=== PATIENT | female | born 1995 ===

== ENCOUNTER 2022-02-17 10:56 | Outpatient (CLI) | payer OTHER | END 2022-02-17 12:25 | disposition home or self-care (01) | LOC: PRENATAL 10:56 | PROVIDERS: ATTEND Obstetrics & Gynecology Maternal & Fetal Medicine | DX: O35.0XX0 Maternal care for (suspected) central nervous system malformation in fetus, not applicable or unspecified (principal); Z3A.20 20 weeks gestation of pregnancy; O35.3XX0 Maternal care for (suspected) damage to fetus from viral disease in mother, not applicable or unspecified; O34.219 Maternal care for unspecified type scar from previous cesarean delivery; O44.00 Complete placenta previa NOS or without hemorrhage, unspecified trimester ==

== ENCOUNTER 2022-05-12 11:31 | Outpatient (CLI) | payer OTHER | END 2022-05-12 12:09 | disposition home or self-care (01) | LOC: PRENATAL 11:31 | PROVIDERS: ATTEND Obstetrics & Gynecology Maternal & Fetal Medicine | DX: O26.849 Uterine size-date discrepancy, unspecified trimester (principal); O34.219 Maternal care for unspecified type scar from previous cesarean delivery; O44.00 Complete placenta previa NOS or without hemorrhage, unspecified trimester; Z3A.32 32 weeks gestation of pregnancy ==